=== PATIENT | female | born 1955 | race Caucasian/White ===

== ENCOUNTER 2017-06-17 07:35 | Day surgery (SDC) | payer OTHER ==
[~2017-06-17] VITALS: Ht 175.3 cm; Wt 85.7 kg
[2017-06-17] MEDS ORDERED: IOHEXOL 350 MG/ML 100 ML BTL (for Cath Lab) OTHER ONE (07:36)
[2017-06-17] MEDS ORDERED: SODIUM CHLORIDE FLUSH PRN IV FLUSH (08:15)
[2017-06-17] MEDS ORDERED: SODIUM CHLOR 0.9% 1000 ML INJ 400 ML IV SCH (08:15)
[2017-06-17 08:41] VITALS: BP 160/102; PULSE 47; RESP 18; TEMP 97.7; O2SAT 100
[2017-06-17] MEDS ORDERED: ASPI-516 CHEW (08:47)
[2017-06-17] MEDS ORDERED: VITA2000 PO (08:47)
[2017-06-17] MEDS ORDERED: LISI20TA PO (08:47)
[2017-06-17] MEDS ORDERED: ALEN35TA24 PO (08:47)
[2017-06-17] MEDS ORDERED: SODIUM CHLORIDE FLUSH BID IV FLUSH SCH (09:00)
[2017-06-17] MEDS ORDERED: MIDAZOLAM HCL 2 MG/2 ML VIAL ONE ×2 (09:06→09:32)
[2017-06-17] MEDS ORDERED: HEPARIN-NS/PF INJ 1,000 ML ONE (09:14)
[2017-06-17] MEDS ORDERED: HEPARIN SODIUM - IV 10,000 UNITS/10 ML VIAL ONE (09:41)
[2017-06-17] MEDS ORDERED: ATROPINE SULFATE 1 MG/10 ML SYRINGE ONE (09:52)
[2017-06-17] MEDS ORDERED: CLOPIDOGREL 300 MG TAB ONE (10:04)
[2017-06-17] MEDS ORDERED: SODIUM CHLOR 0.9% 1000 ML INJ 1,000 ML IV SCH (10:10)
[2017-06-17] MEDS ORDERED: ONDANSETRON HCL 4 MG/2 ML VIAL IV PUSH PRN (10:15)
[2017-06-17] MEDS ORDERED: METOCLOPRAMIDE HCL 10 MG/2 ML VIAL IV PUSH PRN (10:15)
[2017-06-17] MEDS ORDERED: LORazepam 2 MG/ML VIAL IV PUSH PRN (10:15)
[2017-06-17] MEDS ORDERED: BACITRACIN OINT 0.9 GM PKT TOP ONE (10:15)
[2017-06-17] MEDS ORDERED: LIDOCAINE HCL 1% 50 ML VIAL INFIL PRN (10:15)
[2017-06-17] MEDS ORDERED: ATROPINE SULFATE 1 MG/ML VIAL IV PUSH PRN (10:15)
[2017-06-17] MEDS ORDERED: SODIUM CHLOR 0.9% 250 ML INJ 250 ML IV PRN (10:15)
[2017-06-17] MEDS ORDERED: PLAV75TA29 PO (10:17)
--- NOTE | 2017-06-17 10:19 | CATHPROC ---
[employer] HIS Report Study Information Study Number Admission Scheduled Start Study Start [id number] Jun 17 2017 7:35AM 06/17/2017 Jun 17 2017 8:58AM [place] Service Cath Endovascular Study Admit Source Facility Department Other [facility] - Contract Attorney Physician and Clinical Staff Initial Salomón Herring [employer] Manager Donny Washington,RN [employer] Manager Christelle Esquivel,UNIQUE Recorder Juani Choi,RT(R) (BS) Scrub Chris Atkins,RT(R) Procedures Performed Procedure Location (Site) Vessel Name Angiogram (manual) Abd Aorta (A3) Aorta Periph stent Fem Art (right) Femoral Art GAMBLING COUNSELLOR Fem Art (right) Femoral Art Equipment Time Associate Entertainment Editor Description Size Mfg Part Number Used/Scraped [id number] 09:13 CORDIS/ KOFI RIM SUPER TORQUE CATHETER FR 5 Used *[id number] *[id number] ENDOVASCULAR [id number] 09:56 STENT, EVERFLEX 8 X 100 120CM 8 X 100 Used Brainjuicer 120 BALLOON, ADMIRAL EXTREME 8 [id number] 09:47 [employer] 130CM Used X 60 130CM *[id number] 09:13 MALLINCKRODT SYRINGE, ANGIOMAT 150ML 150ML [id number] Used [id number] 09:13 [employer]ensor IND[employer]ES PACK, CCL CUSTOM * Used *[id number] 09:13 SepSensor PACER PEN, SKIN DUAL W/ RULER * Used *[id number] [id number]- 10:05 [employer] MEDICAL SHEATH, FR6.5 PRELUDE 11CM FR 6.5 038ACT Used *[id number] 09:13 [employer] MEDICAL WIRE, EXCHANGE 260CM 3MMJ 260CM Used *[id number] 09:13 NAMIC MANIFOLD, 4 PORT * Used *[id number] 09:13 NAMIC TUBING, HIGH PRESSURE 48" 48" Used *[id number] 09:13 NYCOMED OMNIPAQUE, 300 MG, 150ML 150ML [id number] Used [id number] 09:13 [employer] BLANKET,WARM AIR CCL * Used *[id number] 09:13 TERUMO MEDICAL SHEATH, FR5 TERUMO (10CM) FR 5 Used *[id number] SHEATH, FR6 PINNACLE [id number] 09:43 TERUMO MEDICAL/KOFI FR 6 Used DESTINATION 45CM *[id number] WIRE, ANGLE GLIDE STIFF .035 [id number] 09:13 TERUMO MEDICAL/KOFI 260CM Used 260CM *[id number] History: Allergies Allergy Reaction Diqyzfj-Uqc-Rxk Reductase Inhibitor red yeast rice History: Risk Factors Family History of Hypertension Dyslipidemia Previous MO Previous Heart Failure Premature CAD Yes Yes No No No Prior Valve Prior PCI Prior CABG Prior CABGDate Surgery No No Yes 10/07/2016 Cerebrovascular Peripheral Artery Chronic Lung On Dialysis Diabetes Disease Disease Disease No No Yes No No History: Other Current Smoker Method Yes Cigarettes Medication Medication Total Dose (Bolus/Oral) Medication Total Dosage/Unit 1% XYLOCAINE 20 mL FENTANYL 50 mcg HEPARIN 6000 units PLAVIX 1015 mg VERSED 4 mg Medications (Bolus/Oral) Medication Time Given Dosage/Unit Administered By Reason VERSED 06/17/2017 9:28:30 AM 2 mg Donny Washington 2 mg VERSED given in lab by Donny Washington RN in Left Antecubital via Peripheral IV. FENTANYL 06/17/2017 9:29:44 AM 50 mcg Donny Washington 50 mcg FENTANYL given in lab by Donny Washington RN in Left Antecubital via Peripheral IV. 1% XYLOCAINE 06/17/2017 9:33:11 AM 20 mL Salomón De La Cruz 20 mL 1% XYLOCAINE given in lab by Salomón De La Cruz in Left Groin via Subcutaneous. VERSED 06/17/2017 9:33:49 AM 2 mg Donny Washington 2 mg VERSED given in lab by Donny Washington RN in Left Antecubital via Peripheral IV. HEPARIN 06/17/2017 9:44:33 AM 6000 units Donny Washington 6000 units HEPARIN given in lab by Donny Washington RN in Left Antecubital via Peripheral IV. 06/17/2017 10:15:35 PLAVIX 1015 mg Donny Washington AM 1015 mg PLAVIX given in lab by Donny Washington RN via Oral. Initial Case Assessment Cardiovascular HR Rhythm NIBP Chest Pain 52 Regular 112/83 0 Edema Present Skin color Skin None Normal Warm Dry Circulatory - Lower Extremities Color Lower Right Color Lower Left Normal Normal Neurological State Oriented to time-place- Alert Moves all extremities person Respiration - General Respiration Rate SpO2 (%) (B/min) 17 99 Chronological Log Time Study Chronological Log 8:57:42 Patient arrived via Bed. 8:57:42 Patient Name, D.O.B, / Armband Verified By R.N. 8:57:43 Consent signed by the physician and the patient and verified by the Contract Attorney staff. 8:57:44 Pre-op and post- op instructions given; patient acknowledges understanding of instructions. 8:57:46 Verbal Stimulation=2 Physical Stimulation=2 Airway=2 Respiration=2 TOTAL=8. (0=absent, 1=li ited, 2=present) 8:57:48 Presedation assessment performed by Contract Attorney RN. 8:57:51 Patient has been NPO for More than 6Hrs. 8:57:51 Skin Breakdown-none per pt 8:57:55 Patient Warmer Placed on the Table. 8:58:00 Veronica Prominences Protected 8:58:01 A # 20 IV was noted in the Antecubital (left). Grade = 0 0.9NS infusing at KVO 8:58:03 History and physical on the chart or being dictated. Assessment: Initial Case, HR=52 BPM, Rhythm=Regular, VNTO=075/83 mmhg, Chest Pain=0, Edema=None, Color=Normal, Skin = Warm, Dry Lower Right Extremities: Color=Normal 8:58:04 Lower Left Extremities: Color=Normal Neurological: State=Alert, Ox3, ALEJANDRE Respiration: Resp=17 B/min, SpO2=99 % Vitals capture started with the following parameters, Patient=Adult, Interval=5 min, Initial Pre hfwtt=778 mmHg, 9:02:09 Deflation Rate=5 mmHg, Cuff placed on Right Arm 9:02:34 HR=52 bpm, DGDK=999/83 mmhg, RgT8=309.0 %, Resp=17 B/min, Pain=0, Yarelis=10, Frazier=2 9:08:16 HR=53 bpm, ZOXA=311/82 mmhg, SpO2=99.0 %, Resp=19 B/min, Pain=0, Yarelis=10, Frazier=2 9:10:31 Bilateral groins prepped with 2% chlorhexidine, and draped after a 3 minute waiting time. 9:13:27 HR=61 bpm, YQXT=443/79 mmhg, SpO2=98.0 %, Resp=26 B/min, Pain=0, Yarelis=10, Frazier=2 9:13:58 Reference ECG taken 9:14:42 paged 9:17:47 HR=55 bpm, YRNF=745/81 mmhg, SpO2=99.0 %, Resp=30 B/min, Pain=0, Yarelis=10, Frazier=2 9:20:44 MD responded 9:22:48 HR=52 bpm, JCSD=457/83 mmhg, SpO2=98.0 %, Resp=13 B/min, Pain=0, Yarelis=10, Frazier=2 9:25:07 MD arrived 9:27:47 HR=53 bpm, YTZF=933/81 mmhg, UrI8=046.0 %, Resp=9 B/min, Pain=0, Yarelis=10, Frazier=2 Time Out. Correct patient, correct procedure, correct physician, power injector not loaded with contrast with surgical 9:28:21 team present. Time Out Concurred by MD and individual staff in procedure. 9:28:30 2 mg VERSED given in lab by Donny Washington RN in Left Antecubital via Peripheral IV. 9:28:33 Case Start 9:29:44 50 mcg FENTANYL given in lab by Donny Washington RN in Left Antecubital via Peripheral IV. 9:32:46 HR=48 bpm, YKAA=760/77 mmhg, InL6=298.0 %, Resp=17 B/min, Pain=0, Yarelis=10, Frazier=2 9:33:11 20 mL 1% XYLOCAINE given in lab by Salomón De La Cruz in Left Groin via Subcutaneous. 9:33:49 2 mg VERSED given in lab by Donny Washington RN in Left Antecubital via Peripheral IV. 9:35:52 Access site was Left Femoral Artery. 9:35:56 A SHEATH, FR5 TERUMO (10CM) FR 5 was advanced into the Fem Art (left) using the Percutaneous technique. A RIM SUPER TORQUE CATHETER FR 5 was advanced over a wire. OMNIPAQUE, 300 MG, 150ML 150ML was u sed for 9:36:31 injections. Recorded Pressure: Ao, HR=48, Condition=Condition 1 9:36:46 (Aorta) Ao 116/64/84 9:37:05 Abd Aorta (A3) angiogram, manually injected. Injections continued down the right leg. 9:37:48 HR=47 bpm, WDNM=911/64 mmhg, RiC6=248.0 %, Resp=13 B/min, Pain=0, Yarelis=10, Frazier=2 A SHEATH, FR6 PINNACLE DESTINATION 45CM FR 6 was exchanged in the Fem Art (left). This was nece ssary in order 9:42:16 to accomodate a larger catheter. 9:42:42 HR=47 bpm, XLHN=799/62 mmhg, SpO2=99.0 %, Resp=17 B/min, Pain=0, Yarelis=10, Frazier=2 9:44:33 6000 units HEPARIN given in lab by Donny Washington, RN in Left Antecubital via Peripheral IV. A BALLOON, ADMIRAL EXTREME 8 X 60 130CM 130CM was inserted over WIRE, ANGLE GLIDE STIFF .035 26 0CM 9:46:58 260CM via the Fem Art (left). 9:47:44 HR=50 bpm, OONE=435/60 mmhg, GiQ6=751.0 %, Resp=21 B/min, Pain=0, Yarelis=10, Frazier=2 9:47:51 In the Fem Art (right) a BALLOON, ADMIRAL EXTREME 8 X 60 130CM 130CM was inflated to 6 atms for 60 seconds. 9:50:01 In the Fem Art (right) a BALLOON, ADMIRAL EXTREME 8 X 60 130CM 130CM was inflated to 6 atms for 60 seconds. 9:53:00 Balloon Removed 9:53:19 HR=43 bpm, SQHO=331/69 mmhg, LcD3=072.0 %, Resp=21 B/min, Pain=0, Yarelis=10, Frazier=2 A STENT, EVERFLEX 8 X 100 120CM 8 X 100 was advanced through a catheter over a WIRE, ANGLE GLID E STIFF .035 9:55:08 260CM 260CM. 9:56:47 A self expandinga stent implantable was deployed in the Fem Art (right). 9:57:46 HR=46 bpm, HLLP=562/73 mmhg, SpO2=99.0 %, Resp=21 B/min, Pain=0, Yarelis=10, Frazier=2 9:57:56 Delivery device removed A BALLOON, ADMIRAL EXTREME 8 X 60 130CM 130CM was inserted over WIRE, ANGLE GLIDE STIFF .035 26 0CM 9:58:51 260CM via the Fem Art (left). 9:59:02 In the Fem Art (right) a BALLOON, ADMIRAL EXTREME 8 X 60 130CM 130CM was inflated to 8 atms for 30 seconds. 9:59:57 In the Fem Art (right) a BALLOON, ADMIRAL EXTREME 8 X 60 130CM 130CM was inflated to 8 atms for 30 seconds. 10:01:47 Balloon Removed. 10:02:45 HR=43 bpm, HTBJ=992/77 mmhg, YoE2=243.0 %, Resp=15 B/min, Pain=0, Yarelis=10, Frazier=2 A SHEATH, FR6.5 PRELUDE 11CM FR 6.5 was exchanged in the Fem Art (left). This was necessary in order to 10:04:08 accomodate a larger catheter. 10:04:48 Wire removed 10:04:53 Case End 10:06:39 Catheter(s) removed without difficulty 10:06:54 In the Fem Art (left) the SHEATH, FR6.5 PRELUDE 11CM FR 6.[address] by Salomón De La Cruz. 10:07:24 No case complications noted. 10:07:52 HR=45 bpm, KUPT=563/56 mmhg, SaO0=009.0 %, Resp=9 B/min, Pain=0, Yarelis=10, Frazier=2 10:07:58 Bedside Report will be given. 10:08:27 Activated Clotting Time Drawn 10:11:37 DOCU called. Spoke to [place]. Advised a-line needed. 10:12:45 BULL=872/74 mmhg, SpO2=97.0 %, Pain=0, Yarelis=10, Frazier=2 10:13:20 ACT (Normal Range 90-180) = 237 10:15:35 1015 mg PLAVIX given in lab by Donny Washington, RN via Oral. 10:18:20 Patient moved to [facility] End Study - Contrast Media Used In Study Contrast Total Opened (mL) Total Used (mL) Total Wasted (mL) Omnipaque 75 75 0 End Study - Radiation Exposure Fluoro Time (minutes) 6.4 End Study - Patient Disposition Complications Transferred To Interventional Outcome No Contract Attorney Holding successful
--- NOTE | 2017-06-17 11:51 | MA ---
cc: ELLIOT SANTOS DATE: 06/17/2017 TOTAL CONTRAST 75 cc. PROCEDURE PERFORMED 1. Fluoroscopy with interpretation. 2. Right lower extremity peripheral angiography. 3. Percutaneous transluminal angioplasty and endovascular stenting with self-expanding stent of the right external iliac artery. METHOD The risks, benefits and alternatives were discussed with the patient. The patient understood and consented to the procedure. The patient was brought into the catheterization lab and placed on the catheterization table. The left groin was prepped and draped in sterile fashion. The left groin was anesthetized with 2% lidocaine. The left common femoral artery was cannulated and a 5 [place] 11 cm sheath was placed without difficulty. PERIPHERAL ANGIOGRAPHY 1. The right common and internal iliac arteries have mild luminal irregularities. The right external iliac artery has a 90% diffuse stenosis throughout its entire course. The right common femoral, profunda, superficial femoral artery and popliteal artery have mild luminal irregularities. There is moderate diffuse disease in the infrapopliteal vessels distally. All three are patent. PERCUTANEOUS INTERVENTION A 5 [place] RIM catheter was selectively engaged in the right common iliac artery. A 0.035 inch, 260 cm Stiff angle Glidewire was navigated down to the right superficial femoral artery. In the mid to distal segment an 8.0 x 60 mm balloon was deployed on two sequential inflations through the right external iliac artery. Repeat angiography showed still severe residual stenosis. An 8.0 x 100 mm self-expanding EV3 stent was then deployed just above the common femoral artery extending back but not covering the internal iliac artery and was post dilated with two inflations of the 8 mm balloon to 8 atmospheres. Repeat angiography showed no residual stenosis, NINA-III flow. CONCLUSIONS 1. Severe right external iliac artery stenosis. 2. Successful percutaneous intervention with a self-expanding stent of the right external iliac artery. PLAN The patient will be monitored closely for any post-procedural complications. The left common femoral artery sheath was sewn into place to be removed with manual hemostasis. The patient will be initiated on Plavix. The patient is intolerant to statin therapy. MD DENILSON Hinton/LIOR /10:18 AM /11:40 AM
== END 2017-06-17 18:03 | disposition home or self-care (01) ==
LOC: HDOC 07:35 → HDIC 07:35 → HDOC 18:03
PROVIDERS: ATTEND Internal Medicine
DX: I70.201 Unspecified atherosclerosis of native arteries of extremities, right leg (principal); I10 Essential (primary) hypertension; I25.10 Atherosclerotic heart disease of native coronary artery without angina pectoris; E78.5 Hyperlipidemia, unspecified; Z95.1 Presence of aortocoronary bypass graft; Z87.891 Personal history of nicotine dependence
CPT/HCPCS: 37221; 75625; 75710; 85002; 85347; 86850; 86900; 86901; C1725; C1769; C1876; C1893; J0461; J1644; J2250; J3010; J7030; Q9967